=== PATIENT | female | born 1995 ===

== ENCOUNTER 2017-02-21 10:50 | Emergency (ER) | payer OTHER ==
[2017-02-21 11:04] VITALS: BP 103/61
--- NOTE | 2017-02-21 11:50 | UC ---
Skin Complaint HPI - HPI Summary HPI Summary: 21 yo c/o last 3 days or so of progressively increase pruritus, bumps all over. Started in lower legs, now has spread to upper legs ant / post, arms, back, hands, toes. No fever. No cough / uri. No abd c/o's. Works indoors. Has two roommates, without symptoms. - History of Current Complaint Chief Complaint: UCSkin Time Seen by Provider: 02/21/17 11:21 Stated Complaint: BUG BITES SKIN COMPLAINT Hx Obtained From: Patient Hx Last Menstrual Period: 01/26/17 - Allergy/Home Medications Allergies/Adverse Reactions: Allergies Allergy/AdvReac Type Severity Reaction Status Date / Time No Known Allergies Allergy Verified 02/21/17 11:00 Home Medications: Home Medications LoraTADine TAB(NF) [Claritin 10 MG TAB(NF)] 10 mg PO QAM 02/21/17 [History Confirmed 02/21/17] Multivitamins/Minerals TAB* [Thera M Plus TAB*] 1 tab PO QAM 02/21/17 [History Confirmed 02/21/17] Pramoxine-Menthol [Gold Peña Medicated Anti-] 1 applic TOPICAL Q2H PRN 02/21/17 [History Confirmed 02/21/17] Review of Systems Constitutional: Negative Skin: Rash Eyes: Negative ENT: Negative Respiratory: Negative Cardiovascular: Negative Gastrointestinal: Negative Genitourinary: Negative All Other Systems Reviewed And Are Negative: Yes PMH/Surg Hx/FS Hx/Imm Hx Previously Healthy: Yes - Surgical History Surgical History: None - Social History Alcohol Use: None Substance Use Type: None Smoking Status (MU): Never Smoked Tobacco Physical Exam Triage Information Reviewed: Yes Appearance: Well-Nourished Vital Signs: Initial Vital Signs Temp 98.3 F 02/21/17 10:56 Pulse 82 02/21/17 10:56 Resp 16 02/21/17 10:56 BP 103/61 02/21/17 10:56 Pulse Ox 98 02/21/17 10:56 Vital Signs Reviewed: Yes Eye Exam: Normal - grossly normal, non-detailed exam ENT Exam: Normal - grossly normal, non-detailed exam Neck exam: Normal Neck: Positive: Supple Respiratory Exam: Normal - no tachypnea / no dyspnea Cardiovascular Exam: Normal - regular rate, nondiaphoretic Abdominal Exam: Normal - no c/o's Musculoskeletal Exam: Normal - see skin. moves all 4 ext's Neurological Exam: Normal - grossly normal, non-detailed exam Psychological Exam: Normal - conversing easily and appropriately Skin Exam: Other - nondiaphoretic. Clearly intensely pruritic. Several lesions, some papular, some red and raised with excoration. Some lesions are in linear fashion. Does not appear infectious cellulitis. Feet mild dermatophytosis appearance, incidental. Course/Dx - Course Course Of Treatment: D/w pt dermatitis, likely related to insect. Strong suspicion of mite (ex scabies). She is in the process of bedding etc washing. . Will start short course prednisone, d/w pt. She will take otc benadryl as needed for itching. - Diagnoses Provider Diagnoses: Rash. Insect bites Discharge - Discharge Plan Condition: Stable Disposition: HOME Patient Education Materials: Scabies (ED), Insect Bite or Sting (ED) Additional Instructions: Do not take prednisone at night. Seek medical attention for worse or new problems. Avoid antibacterial soap, use hypoallergenic laundry soap and double rinse. Avoid hot showers until symptoms improved.
== END 2017-02-21 11:58 | disposition home or self-care (01) ==
LOC: UCCORT 10:50
DX: R21 Rash and other nonspecific skin eruption (principal); T14.8 Other injury of unspecified body region; W57.XXXA Bitten or stung by nonvenomous insect and other nonvenomous arthropods, initial encounter
CPT/HCPCS: 99202; G0463